=== PATIENT | male | born 1990 | race Caucasian/White ===

== ENCOUNTER 2020-06-12 10:14 | Inpatient (IN) | payer BC, OTHER ==
[2020-06-12 10:52] LABS: #Eosinphils 0.1 thou/uL (0.0-0.7); #Lymphocytes 2.5 thou/uL (1.20-3.40); #Monocytes 0.6 thou/uL (0.11-0.59); #Neutrophils 6.1 thou/uL (1.40-6.50); %Basophils 0.4 % (0.0-1.0); %Eosinophils 0.6 % (0.0-10.0); %Lymphocytes 26.9 % (21.0-51.0); %Monocytes 6.6 % (0.0-10.0); %Neutrophils 65.5 % (42.0-75.0); Hemoglobin 15.6 g/dL (14.0-18.0); Mean Corpuscular HGB CONC 34.1 g/dL (32.0-36.0); Mean Corpuscular Hemoglobin 30.8 pg (27.0-31.0); Mean Corpuscular Volume 90.3 fL (78.0-98.0); Mean Platelet Volume 10.1 fL (7.4-10.4); Platelet Count 180 thou/uL (130-400); RBC Distribution Width 12.6 % (11.5-14.5); Red Blood Cell (RBC) Count 5.06 mill/uL (4.70-6.10); White Blood Cell (WBC) Count 9.3 thou/uL (4.8-10.8)
[2020-06-12 11:01] LABS: INR-International Normal Ratio 1.1; PTT 24.8 sec (22.9-36.1)
[2020-06-12] MEDS ORDERED: Morphine 4 MG/ML VIAL ONE (11:03)
[2020-06-12] MEDS ORDERED: TETANUS AND DIPHTHERIA TOX/PF 0.5 ML DISP.SYRIN IM ONE (11:15)
[2020-06-12] MEDS ORDERED: Crotalidae Polyvlnt Antivenin 4 GM in Sodium Chloride 0.9% 250 ML 250 ML IVPB SCH (11:15)
[2020-06-12] MEDS ORDERED: HOLD ALL ANTI-COAGULANTS/ANTI-PLATELETS/NSAIDS PO SCH (11:15)
[2020-06-12 11:19] LABS: ALT (SGPT) 47 U/L (8-55); AST (SGOT) 37 U/L (5-34); Albumin 4.3 g/dL (3.5-5.0); Alkaline Phosphatase 86 U/L (40-110); Anion Gap 20 mmol/L (10-20); BUN (Urea Nitrogen) 12 mg/dL (8.9-20.6); Bilirubin, Total 0.5 mg/dL (0.2-1.2); CK (CPK) 1030 U/L (30-200); Calc. Creatinine Clearance 0 mL/min (70-130); Calcium 8.2 mg/dL (7.8-10.44); Carbon Dioxide 17 mmol/L (22-29); Chloride 104 mmol/L (98-107); Estimated GFR-MDRD 88; Globulin 2.9 g/dL (2.4-3.5); Glucose 99 mg/dL (70-105); Potassium 4.1 mmol/L (3.5-5.1); Protein, Total 7.2 g/dL (6.0-8.3); Sodium 137 mmol/L (136-145)
--- NOTE | 2020-06-12 11:31 | PDOC.HHP ---
Hospitalist HPI - History of Present Illness Snake bite History of Present Illness: PCP: Out of town ([place]) The patient is a 30-year-old male with a past medical history significant for hypertension that presents to the emergency department for the above complaint. The patient reports suffering a snakebite at approximately 1 AM in the morning while [place]. He says that he was bit on his left great toe. He reports that his friend saw the snake. They believe it to be a water moccasin. He reports that he been drinking pretty heavily that night because he was celebrating a bachelor constitution party. He went to bed and woke up this morning with increased swelling and pain to his left lower extremity. He reports that he tries not to move his left foot because of the pain. He denies any abdominal pain, nausea, vomiting or diarrhea. He denies any bleeding or bruising. He denies any chest pain, heart palpitations or shortness of breath. He denies any fever. He had a friend drive him to the emergency department for further evaluation. ED Course: VITAL SIGNS Sat Jun 12, 2020 10:15 MACY Lorenzana Dannette BP: 131/82, Pulse: 94, Resp: 19, Temp: 97.6 (Oral), Pain: 7, O2 sat: 99 on (Room Air), Time: 06/12/2020 10:15. VITAL SIGNS Sat Jun 12, 2020 11:11 MACY Boo Jenifer BP: 110/62, MAP: 68, Pulse: 89, Resp: 18 (Non-Labored), Pain: 0, O2 sat: 98 on (Room Air), Time: 06/12/2020 11:11. Medication administration: CroFab 4 vial(s) IV Push Acknowledged 11:06/12/2020 Adacel(Tdap Adolesn/Adult)(PF) 0.5 mL Intramuscular Acknowledged 11:06/12/2020 sodium chloride 0.9 % intravenous 1 L IV Fluid Infusion Given :06/12/2020 morphine injection 4 mg IV Push Given 11:06/12/2020 Hospitalist ROS - Review of Systems Constitutional: denies: fever, chills Respiratory: denies: cough, shortness of breath, hemoptysis, SOB with excertion Cardiovascular: denies: chest pain, palpitations, light headedness Gastrointestinal: denies: nausea, vomiting, abdominal pain, diarrhea Genitourinary: denies: dysuria Neurological: denies: weakness, incoordination, change in speech, confusion All other systems reviewed; all pertinent +/- noted in HPI/Subj Hospitalist History - Past Medical History Source: patient Cardiac: reports: HTN (No medications) - Past Surgical History Past Surgical History: reports: no pertinent history - Family History Family History: reports: no pertinent history Other Family History: Noncontributory to this case - Social History Smoking Status: Current every day smoker (Vapes) Alcohol: reports: Occassional Drugs: reports: marijuana (Intermittently) Activity level: independent ambulation - Exam General Appearance: NAD, awake alert. negative: ill appearing Eye: PERRL, anicteric sclera ENT: normocephalic atraumatic Neck: supple, symmetric Heart: RRR, no murmur, no gallops, no rubs, normal peripheral pulses Respiratory: CTAB, no wheezes, no rales, no ronchi, normal chest expansion, no tachypnea Gastrointestinal: soft, non-tender, non-distended, normal bowel sounds, no guarding, no rigidity Extremities - other findings: To pinpoint bunch base left great toe, nonpitting edema, erythema mid serna Neurological: cranial nerve grossly intact, no focal deficits Psychiatric: normal affect, A&O x 3 Hospitalist Results - Labs Result Diagrams: 06/12/20 10:42 06/12/20 10:42 Lab results: WBC 9.3 thou/uL (4.8-10.8) 06/12/20 10:42 Hgb 15.6 g/dL (14.0-18.0) 06/12/20 10:42 Hct 45.7 % (42.0-52.0) 06/12/20 10:42 MCV 90.3 fL (78.0-98.0) 06/12/20 10:42 Plt Count 180 thou/uL (130-400) 06/12/20 10:42 Neutrophils % 65.5 % (42.0-75.0) 06/12/20 10:42 Sodium 137 mmol/L (136-145) 06/12/20 10:42 Potassium 4.1 mmol/L (3.5-5.1) 06/12/20 10:42 Chloride 104 mmol/L (98-107) 06/12/20 10:42 Carbon Dioxide 17 mmol/L (22-29) L 06/12/20 10:42 BUN 12 mg/dL (8.9-20.6) 06/12/20 10:42 Creatinine 0.99 mg/dL (0.7-1.3) 06/12/20 10:42 Glucose 99 mg/dL (70-105) 06/12/20 10:42 Calcium 8.2 mg/dL (7.8-10.44) 06/12/20 10:42 Total Bilirubin 0.5 mg/dL (0.2-1.2) 06/12/20 10:42 AST 37 U/L (5-34) H 06/12/20 10:42 ALT 47 U/L (8-55) 06/12/20 10:42 Alkaline Phosphatase 86 U/L (40-110) 06/12/20 10:42 Creatine Kinase 1030 U/L (30-200) H 06/12/20 10:42 Serum Total Protein 7.2 g/dL (6.0-8.3) 06/12/20 10:42 Albumin 4.3 g/dL (3.5-5.0) 06/12/20 10:42 - EKG Interpretation EK LEAD EKG INTERPRETATION Normal sinus rhythm nonspecific pulse rate 86 no STEMI. Hospitalist H&P A/P - Problem (1) Venomous snake bite Code(s): T63.004A - TOXIC EFFECT OF UNSP SNAKE VENOM, UNDETERMINED, INIT ENCNTR Status: Acute (2) Elevated CPK Status: Acute (3) HTN (hypertension) Code(s): I10 - ESSENTIAL (PRIMARY) HYPERTENSION Status: Chronic - Plan Plan: 30/M with PMH for HTN presents for snakebite. Admit to telemetry floor, inpatient status. Expected length of stay greater than 2 midnights. Presented stable vital signs. EKG normal sinus rhythm. CK 1030, LFTs unremarkable, PT 15, PTT 24.8, INR 1.1 WBC 9.3, Hgb 15.6, HCT 45.7, platelets 180 Initiated CroFab. Received Tdap. #Venomous snakebite, Left lower extremity Received CroFab in the ER. Continue envenomation snakebite protocol. Analgesia and antiemetics. Continue IV fluids. No antibiotics recommended at this time. #Elevated CPK Continue IV fluids. Recheck levels per admit admission stay by protocol. #Hypertension Presented normotensive. Does not take all medications for this. Continue to monitor BP. No pharmacological DVT prophylaxis. No mechanical DVT prophylaxis. No GI prophylaxis. Full code. Friend/ride: Ja Discussed case with Dr. Miguel.
[2020-06-12] MEDS ORDERED: Acetaminophen 325 MG TAB PO PRN (11:43)
[2020-06-12] MEDS ORDERED: Ondansetron ODT 4 MG TAB PO PRN (11:43)
[2020-06-12] MEDS ORDERED: HYDROcodone/Acetaminophen 5/325 mg Tablet PO PRN (11:43)
[2020-06-12] MEDS ORDERED: Ondansetron PF 4 MG/2 ML Vial IVP PRN (11:43)
[2020-06-12] MEDS ORDERED: Calcium Carbonate 500 MG ChewTAB PO PRN (11:43)
[2020-06-12] MEDS ORDERED: Morphine 2 MG/ML VIAL SLOW IVP PRN (11:47)
[2020-06-12] MEDS ORDERED: Boostrix 0.5 ML VIAL ONE (12:00)
[2020-06-12] MEDS ORDERED: Ondansetron PF 4 MG/2 ML Vial ONE (12:42)
[2020-06-12 13:34] VITALS: BMI 37.6
[2020-06-12] MEDS: Sodium Chloride 0.9% 1,000 ML IV SCH ×2 (14:01→19:01)
[2020-06-12] MEDS: HYDROcodone/Acetaminophen 5/325 mg Tablet PO PRN ×3 (14:26→21:59)
[2020-06-12 15:37] LABS: Platelet Count 174 thou/uL (130-400)
[2020-06-12 15:45] LABS: INR-International Normal Ratio 1.1; PTT 24.7 sec (22.9-36.1); Prothrombin Time 14.8 sec (12.0-14.7)
[2020-06-12] MEDS: Nicotine 14 MG PATCH TD SCH (15:49)
[2020-06-12 16:08] LABS: Bacteria/HPF None Seen HPF (None Seen); Bilirubin Negative (Negative); Blood, Urine Trace (Negative); Clarity Turbid (Clear); Glucose, Urine (Dipstick) Normal (Negative); Ketone, Urine 20 mg/dL (Negative); Leukocyte Negative Leu/uL (Negative); Nitrite Negative (Negative); Protein, Urine (Dipstick) 70 mg/dL (Neg-Trace); RBC/HPF 0-3 HPF (0-3); Specific Gravity, Urine 1.024 (1.002-1.036); Squamous Epithelial 0-3 HPF (0-3); Urobilinogen Normal mg/dL (Less than 2); WBC/HPF 0-3 HPF (0-3); pH, Urine 5.5 (5.0-9.0)
[2020-06-12] MEDS ORDERED: Crotalidae Polyvlnt Antivenin 2 GM in Sodium Chloride 0.9% 250 ML 250 ML IVPB SCH (18:00)
[2020-06-12] MEDS: Crotalidae Polyvlnt Antivenin 2 GM in Sodium Chloride 0.9% 250 ML 250 ML IVPB SCH (20:27)
[2020-06-13] MEDS: Crotalidae Polyvlnt Antivenin 2 GM in Sodium Chloride 0.9% 250 ML 250 ML IVPB SCH ×2 (02:21→09:55)
[2020-06-13] MEDS: Sodium Chloride 0.9% 1,000 ML IV SCH ×4 (05:05→17:05)
[2020-06-13 05:21] LABS: Band 2 % (5-11); Eosinophils 5 % (0-10); Hemoglobin 13.4 g/dL (14.0-18.0); Lymphocytes 41 % (21-51); MDiff Complete? YES; Mean Corpuscular HGB CONC 34.6 g/dL (32.0-36.0); Mean Corpuscular Hemoglobin 32.2 pg (27.0-31.0); Mean Corpuscular Volume 92.9 fL (78.0-98.0); Mean Platelet Volume 10.2 fL (7.4-10.4); Monocytes 3 % (0-10); Neutrophil 49 % (42-75); Platelet Count 133 thou/uL (130-400); RBC Distribution Width 12.4 % (11.5-14.5); Red Blood Cell (RBC) Count 4.15 mill/uL (4.70-6.10)
[2020-06-13 06:06] LABS: ALT (SGPT) 35 U/L (8-55); AST (SGOT) 23 U/L (5-34); Albumin 3.5 g/dL (3.5-5.0); Alkaline Phosphatase 70 U/L (40-110); Anion Gap 11 mmol/L (10-20); BUN (Urea Nitrogen) 11 mg/dL (8.9-20.6); Bilirubin, Total 1.1 mg/dL (0.2-1.2); CK (CPK) 617 U/L (30-200); Calc. Creatinine Clearance 224 mL/min (70-130); Calcium 7.9 mg/dL (7.8-10.44); Carbon Dioxide 23 mmol/L (22-29); Chloride 108 mmol/L (98-107); Estimated GFR-MDRD Greater than 90; Globulin 2.4 g/dL (2.4-3.5); Glucose 99 mg/dL (70-105); Potassium 4.2 mmol/L (3.5-5.1); Protein, Total 5.9 g/dL (6.0-8.3); Sodium 138 mmol/L (136-145)
[2020-06-13] MEDS: HYDROcodone/Acetaminophen 5/325 mg Tablet PO PRN (07:58)
[2020-06-13] MEDS ORDERED: Cepastat Lozenges 1 LOZ PO PRN (08:36)
[2020-06-13] MEDS ORDERED: Artificial Tear Sol 15 ML BOT EA EYE PRN (08:36)
[2020-06-13] MEDS: Piperacillin/Tazobactam 4.5 GM in Sodium Chloride 0.9% 100 ML IVPB SCH ×2 (11:21→17:04)
--- NOTE | 2020-06-13 11:42 | PDOC.HOSPP ---
- Subjective Encounter Date: 06/13/20 Encounter Time: 11:41 Subjective: Patient was seen and examined in bed. No significant events overnight. He complains of ongoing pain in tenseness in his left lower limb. He denies any chest pain or shortness of breath. - Objective Vital Signs & Weight: Vital Signs (12 hours) Temp Pulse Resp BP BP Pulse Ox 06/13/20 07:47 98.2 F 80 16 130/71 94 L 06/13/20 02:21 81 18 118/66 Weight Weight 269 lb 14.4 oz I&O: 06/12/20 06/13/20 06/14/20 06:59 06:59 06:59 Intake Total 2900 Output Total 950 Balance 1950 Result Diagrams: 06/13/20 04:33 06/13/20 04:33 Hospitalist ROS - Medication Medications: Active Medications Generic Name Dose Route Start Last Admin Trade Name Freq PRN Reason Stop Dose Admin Hydrocodone Bitart/Acetaminophen 2 tab 06/12/20 11:43 06/13/20 07:58 Hydrocodone/Acetaminophen 5/325 Mg Tablet PO 2 tab Q4H PRN Administration Severe Pain (7-10) Sodium Chloride 1,000 mls @ 170 mls/hr 06/12/20 11:45 06/13/20 10:44 Normal Saline 0.9% IV 1,000 mls .Q5H53M JEAN CARLOS Administration Piperacillin Sod/Tazobactam 100 mls @ 200 mls/hr 06/13/20 10:00 06/13/20 11:21 Sod 4.5 gm/ Sodium Chloride IVPB 100 mls 0200,1000,1800 JEAN CARLOS Administration Morphine Sulfate 4 mg 06/12/20 11:47 06/12/20 20:36 Morphine 2 Mg/Ml Vial SLOW IVP 4 mg Q4H PRN Administration Breakthrough Pain Nicotine 14 mg 06/12/20 16:00 06/12/20 15:49 Nicotine 14 Mg Patch TD 14 mg Q24HR JEAN CARLOS Administration - Exam General Appearance: awake alert Eye: PERRL, anicteric sclera Neck: supple, no JVD Heart: RRR, no murmur, no gallops, normal peripheral pulses Respiratory: no wheezes, no rales, no ronchi, normal chest expansion Gastrointestinal: soft, non-tender, non-distended, normal bowel sounds Extremities - other findings: Swollen and edematous left foot. Differentially warm. Neurological: cranial nerve grossly intact, no focal deficits Psychiatric: A&O x 3 Hosp A/P - Plan 30-year-old male patient admitted on account of left lower limb swelling secondary to snake bite. Swelling has remained persistently concerning for developing cellulitis/deep infection. Left foot snakebite Received antivenom according to protocol No systemic symptoms however with leg remains swollen and painful We will continue monitoring. Left foot cellulitis. Likely secondary snakebite for possible superimposed infection. Will start Zosyn MRI to rule out any deeper infection/osteomyelitis Consult ID if he becomes worse. Hypertension At presentation Blood pressure stable Continue monitoring. Next VT prophylaxisLovenox
[2020-06-13 12:54] LABS: Platelet Count 143 thou/uL (130-400)
[2020-06-13 12:57] LABS: INR-International Normal Ratio 1.1; Prothrombin Time 14.2 sec (12.0-14.7)
--- NOTE | 2020-06-13 13:12 | MRI ---
MRI left foot without and with gadolinium contrast HISTORY: Foot wound. Snakebite. FINDINGS: Bone marrow signal is within normal limits. There is thickening of the subcutaneous tissues about the dorsum of the foot in the lateral aspect of the ankle with increased T2 and diminished T1 signal. Associated contrast enhancement of the thickened subcutaneous tissues. Underlying bone mar row signal is within normal limits without abnormal enhancement. No muscular abnormalities. Physiologic amount of fluid at the ankle. No focal fluid collections. IMPRESSION : Severe subcutaneous edema about the ankle and foot. No evidence of abscess or involvement of the deep structures.
[2020-06-13] MEDS ORDERED: Magnevist 469MG/ML 20 ML VIAL ONE (13:49)
[2020-06-13] MEDS: Nicotine 14 MG PATCH TD SCH (15:17)
[2020-06-13 16:09] LABS: SARS-CoV-2 MS2 Positive; SARS-CoV-2 N Gene Positive; SARS-CoV-2 S Gene Positive; SARS-CoV-2 by NAA DETECTED (NotDetected); SARS-CoV-2 orf1ab Negative
[2020-06-13] MEDS ORDERED: Enoxaparin Sodium 40 MG/0.4 ML SYRINGE SC SCH (21:00)
[2020-06-13 23:33] LABS: Platelet Count 126 thou/uL (130-400)
[2020-06-13 23:35] LABS: Prothrombin Time 13.7 sec (12.0-14.7)
[2020-06-13 23:36] LABS: PTT 28.7 sec (22.9-36.1)
[2020-06-14] MEDS: Sodium Chloride 0.9% 1,000 ML IV SCH ×3 (00:20→10:29)
[2020-06-14] MEDS: Piperacillin/Tazobactam 4.5 GM in Sodium Chloride 0.9% 100 ML IVPB SCH ×2 (02:52→10:29)
[2020-06-14 04:58] LABS: ALT (SGPT) 27 U/L (8-55); AST (SGOT) 17 U/L (5-34); Albumin 3.5 g/dL (3.5-5.0); Alkaline Phosphatase 84 U/L (40-110); Anion Gap 12 mmol/L (10-20); BUN (Urea Nitrogen) 9 mg/dL (8.9-20.6); Bilirubin, Total 0.5 mg/dL (0.2-1.2); CK (CPK) 252 U/L (30-200); Calc. Creatinine Clearance 214 mL/min (70-130); Calcium 8.2 mg/dL (7.8-10.44); Carbon Dioxide 25 mmol/L (22-29); Chloride 106 mmol/L (98-107); Estimated GFR-MDRD Greater than 90; Globulin 2.4 g/dL (2.4-3.5); Glucose 140 mg/dL (70-105); Protein, Total 5.9 g/dL (6.0-8.3); Sodium 139 mmol/L (136-145)
[2020-06-14 05:12] LABS: Band 5 % (5-11); Eosinophils 6 % (0-10); Hemoglobin 12.7 g/dL (14.0-18.0); Lymphocytes 43 % (21-51); MDiff Complete? YES; Mean Corpuscular HGB CONC 34.1 g/dL (32.0-36.0); Mean Corpuscular Hemoglobin 31.4 pg (27.0-31.0); Mean Corpuscular Volume 92.3 fL (78.0-98.0); Mean Platelet Volume 10.5 fL (7.4-10.4); Monocytes 5 % (0-10); Neutrophil 41 % (42-75); Platelet Count 117 thou/uL (130-400); Platelet Morphology Comment Appears Decreased; RBC Distribution Width 12.3 % (11.5-14.5); Red Blood Cell (RBC) Count 4.05 mill/uL (4.70-6.10); White Blood Cell (WBC) Count 4.8 thou/uL (4.8-10.8)
[2020-06-14 07:49] VITALS: BP 142/93; TEMP 98
--- NOTE | 2020-06-14 10:48 | PDOC.HOSPP ---
- Subjective Encounter Date: 06/14/20 Encounter Time: 10:46 Subjective: Mr. De Los Santos was seen today in follow-up of snake bite. He notes less pain in his foot, but still painful to put pressure on it. - Objective Vital Signs & Weight: Vital Signs (12 hours) Temp Pulse Resp BP Pulse Ox 06/14/20 07:36 98.0 F 72 16 142/93 H 98 06/14/20 03:23 97.4 F L 80 15 137/65 97 Weight Weight 270 lb 9.6 oz I&O: 06/13/20 06/14/20 06/15/20 06:59 06:59 06:59 Intake Total 2900 2380 Output Total 950 2825 Balance 1950 -445 Result Diagrams: 06/14/20 04:19 06/14/20 04:19 Hospitalist ROS - Medication Medications: Active Medications Generic Name Dose Route Start Last Admin Trade Name Freq PRN Reason Stop Dose Admin Hydrocodone Bitart/Acetaminophen 2 tab 06/12/20 11:43 06/13/20 07:58 Hydrocodone/Acetaminophen 5/325 Mg Tablet PO 2 tab Q4H PRN Administration Severe Pain (7-10) Artificial Tears 2 drop 06/13/20 08:36 06/13/20 14:05 Artificial Tear Princess 15 Ml Bot EA EYE 2 drop QIDPRN PRN Administration Dry Eyes Enoxaparin Sodium 40 mg 06/13/20 21:00 06/13/20 21:41 Enoxaparin Sodium 40 Mg/0.4 Ml Syringe SC 40 mg 2100 JEAN CARLOS Administration Sodium Chloride 1,000 mls @ 170 mls/hr 06/12/20 11:45 06/14/20 10:29 Normal Saline 0.9% IV 1,000 mls .Q5H53M JEAN CARLOS Administration Piperacillin Sod/Tazobactam 100 mls @ 200 mls/hr 06/13/20 10:00 06/14/20 10:29 Sod 4.5 gm/ Sodium Chloride IVPB 100 mls 0200,1000,1800 JEAN CARLOS Administration Morphine Sulfate 4 mg 06/12/20 11:47 06/12/20 20:36 Morphine 2 Mg/Ml Vial SLOW IVP 4 mg Q4H PRN Administration Breakthrough Pain Nicotine 14 mg 06/12/20 16:00 06/13/20 15:17 Nicotine 14 Mg Patch TD 14 mg Q24HR JEAN CARLOS Administration Throat Lozenges 1 roberta 06/13/20 08:36 06/13/20 14:05 Cepastat Lozenges 1 Roberta PO 1 roberta Q2H PRN Administration Sore Throat - Exam Eye: PERRL, anicteric sclera Heart: RRR, no murmur, no gallops, no rubs, normal peripheral pulses Respiratory: CTAB, no wheezes, no rales, no ronchi, normal chest expansion, no tachypnea Gastrointestinal: soft, non-tender, non-distended, normal bowel sounds, no palpable masses Extremities: 1+ LE edema (+ edema in the left foot, however he has good dorsalis pedis pulses, good capillary refill, and normal sensation,) Hosp A/P (1) Venomous snake bite Code(s): T63.004A - TOXIC EFFECT OF UNSP SNAKE VENOM, UNDETERMINED, INIT ENCNTR Status: Acute (2) HTN (hypertension) Code(s): I10 - ESSENTIAL (PRIMARY) HYPERTENSION Status: Chronic - Plan * Snake bite- symptomatically improving * No evidence of super-infection- can discontinue antibiotics * No evidence of compartment syndrome * Stable for discharge home
--- NOTE | 2020-06-14 22:27 | DIS ---
DATE OF ADMISSION: 06/13/2020 DATE OF DISCHARGE: 06/14/2020 PRIMARY CARE PHYSICIAN: Dr. Abraham in [place], [place]. DISCHARGE DIAGNOSES: 1. Venomous snake bite. 2. COVID-19 infection. 3. Hypertension. MEDICATIONS: Include ibuprofen 200 mg q.6 as needed. IMAGING DONE DURING THE HOSPITAL STAY: The patient had an MRI of the lower extremity showing severe subcutaneous edema about the ankle and foot, but there is no evidence of abscess in the deep structures. CODE STATUS: Full code. ALLERGIES: NO KNOWN DRUG ALLERGIES. HOSPITAL COURSE: Mr. De Los Santos is a pleasant 30-year-old gentleman, who was [place] in a [place] when he got bitten by a [place] snake. He was with a friend, who saw the snake. He began to have pain and swelling in the left foot extending it up into his ankle. He came to the ER for evaluation. In the ER, he underwent the administration of CroFab and was admitted to the hospital. Coagulation studies were obtained and followed during his hospital stay. He had an MRI of the lower extremity to rule out deep infection, which was negative and when I saw him two days after admission, the swelling was beginning to subside in the foot. He had good dorsalis pedis pulses. Good capillary refill. He was able to wiggle his toes. There is no evidence of any sensory loss and as such, I felt it was safe for him to go home. He had a routine COVID-19 screening, which was positive. However, the patient had no symptoms of COVID infection. He was not having any cough. No shortness of breath. No fever and he will be given instructions on quarantine based on his symptomatology at the time of discharge. Job ID: [id number]
== END 2020-06-14 13:55 | disposition home or self-care (01) | DRG 917 ==
LOC: ERS 10:14 → 2SW 12:19 → OBSVTOIN 06-13 11:38 → 2NO 06-13 14:27
PROVIDERS: ADMIT Student in an Organized Health Care Education/Training Program; ATTEND Student in an Organized Health Care Education/Training Program
PROC: 3E0334Z Introduction of Serum, Toxoid and Vaccine into Peripheral Vein, Percutaneous Approach (ICD-10-PCS; principal; 2020-06-13)
DX: T63.091A Toxic effect of venom of other snake, accidental (unintentional), initial encounter (principal); U07.1 COVID-19; L03.116 Cellulitis of left lower limb; F17.210 Nicotine dependence, cigarettes, uncomplicated; I10 Essential (primary) hypertension; Z23 Encounter for immunization
CPT/HCPCS: 36415; 80053; 81001; 82550; 85007; 85025; 85027; 85384; 85610; 85730; 87635; 90471; 90714; 90715; 93005; 96361; 96366; 96374; 96375; 96376; A9579; G0378; J0840; J1650; J2270; J2405; J2543; J3490; J7050; U0003